=== PATIENT | male | born 1965 | race Caucasian/White ===

== ENCOUNTER 2018-03-19 05:50 | Day surgery (SDC) | payer OTHER ==
[~2018-03-19] VITALS: Ht 175.3 cm; Wt 110.0 kg
[~2018-03-19 05:50] MED LIST: ASPI81CH PO; Amoxicillin500 MG PO; BAYER CHEWABLE81 MG PO; CEPH500 PO; CIPR500; Desyrel50 MG PO; Flomax0.4 MG PO; HYDACE10B; HYDHCL25 PO; KETO10 PO; METO25ER PO; Mobic7.5 MG PO; NAPR220; OMEP20ER PO; OXYACE5T PO; PARO20 PO; PROM25 PO; Percocet 10-321 EACH PO; Percocet 5-3251 EACH PO; Potassium Citra5 MEQ PO; Pyridium100 MG PO; Robaxin500 MG PO; TAMS.4ER PO; TRAZ100 PO; Tylenol325 MG PO; Ultram50 MG PO; VITAMIN D350000 UNIT PO
--- NOTE | 2018-03-19 08:02 | NUR ---
PT RETURNED TO RECOVERY ROOM IN [facility]. RIGHT RADIAL TR BAND SITE WITH WRIST BOARD SOFT NON-TENDER WITH NO HEMATOMA NO PULSATILE BLEEDING. DR CARLTON WAS IN ROOM TO SEE PT. PT DENIES CHEST PAIN. CALL LIGHT IN REACH.
[2018-03-19] MEDS ORDERED: Prilosec Otc20 MG (08:23)
== END 2018-03-19 11:27 | disposition home or self-care (01) ==
LOC: MHTC 05:50
DX: R07.9 Chest pain, unspecified (principal); I25.10 Atherosclerotic heart disease of native coronary artery without angina pectoris; R06.02 Shortness of breath; Z88.5 Allergy status to narcotic agent
CPT/HCPCS: 93454; 99152; 99153; C1769; C1894; J1644; J2250; J3010; J7030; Q9967